=== PATIENT | male | born 1985 | race African-American/Black ===

== ENCOUNTER 2019-03-20 19:03 | Emergency (ER) | payer SELFPAY ==
[2019-03-20] MEDS: Take Home: Acetaminophen/HYDROcodone 325-5 MG, 5 Tab Pack PO ONE (19:35)
[2019-03-20] MEDS: Take Home: Amoxicillin/Clavulanate K 875-125 MG Tab, 2 Tab Pack PO ONE (19:35)
--- NOTE | 2019-03-21 03:52 | EDM.PDOC ---
ED HPI GENERAL MEDICAL PROBLEM - General Chief Complaint: General Stated Complaint: ABCESSED TOOTH Time Seen by Provider: 03/20/19 19:20 Source of Information: Reports: Patient History Limitations: Reports: No Limitations - History of Present Illness INITIAL COMMENTS - FREE TEXT/NARRATIVE: Pt. presents to ER with 1 day history of L lower tooth fracture, pain, and facial swelling. Pt. states that he has a history of dental caries and poor dentition and states that the tooth broke yesterday when he was eating a burger. He states that the pain started gradually over time. Denies any fever or chills. No chest pain or shortness of breath. Pt. has been seen at [facility] in [place] and will be undergoing extraction of approx. 8 teeth in the near future. He is raising money for dentures. Denies any neck swelling. No issues with moving his neck or swallowing. 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, NSAIDS Left Upper Jaw Pain Score (Numeric/FACES): 10 - Related Data Allergies Allergy/AdvReac Type Severity Reaction Status Date / Time No Known Allergies Allergy Verified 03/20/19 21:40 Past Medical History - Past Health History Medical/Surgical History: Denies Medical/Surgical History Social & Family History - Tobacco Use Smoking Status *Q: Never Smoker - Recreational Drug Use Recreational Drug Use: No ED ROS GENERAL - Review of Systems Review Of Systems: See Below Constitutional: Reports: No Symptoms HEENT: Reports: Dental Pain Respiratory: Reports: No Symptoms Cardiovascular: Reports: No Symptoms Endocrine: Reports: No Symptoms GI/Abdominal: Reports: No Symptoms : Reports: No Symptoms Musculoskeletal: Reports: No Symptoms Skin: Reports: No Symptoms Neurological: Reports: No Symptoms Psychiatric: Reports: No Symptoms Hematologic/Lymphatic: Reports: No Symptoms Immunologic: Reports: No Symptoms ED EXAM, GENERAL - Physical Exam Exam: See Below Exam Limited By: No Limitations General Appearance: Alert, WD/WN, No Apparent Distress Throat/Mouth: Other (numerous decayed teeth on L mandibular molars, premolars. No obvious abscess noted. Moderate edema to the soft tissue of the face on the left. No obvious abscess noted. ) Head: Atraumatic, Normocephalic Neck: Normal Inspection, Supple, Non-Tender, Full Range of Motion, Lymphadenopathy (L) Respiratory/Chest: No Respiratory Distress, Lungs Clear, Normal Breath Sounds, No Accessory Muscle Use, Chest Non-Tender Cardiovascular: Normal Peripheral Pulses, Regular Rate, Rhythm, No Edema, No Gallop, No JVD, No Murmur, No Rub Course - Vital Signs Last Recorded V/S: Last Vital Signs Temp 35.9 C 03/20/19 19:15 Pulse 55 L 03/20/19 19:15 Resp 16 03/20/19 19:15 BP 155/95 H 03/20/19 19:15 Pulse Ox 99 03/20/19 19:15 - Orders/Labs/Meds Meds: Medications Discontinued Medications Generic Name Dose Route Start Last Admin Trade Name Freq PRN Reason Stop Dose Admin Hydrocodone Bitart/Acetaminophen 1 packet 03/20/19 19:23 03/20/19 19:35 Take Home: Acetam/Hydrocodon 325-5 Mg, 5 Pack PO 03/20/19 19:24 1 packet ONETIME ONE Administration Amoxicillin/Clavulanate Potassium 1 packet 03/20/19 19:23 03/20/19 19:35 Take Home: Amox/Clavulanate 875-12, 2 Tab Pac PO 03/20/19 19:24 1 packet ONETIME ONE Administration Departure - Departure Time of Disposition: 19:40 Disposition: Home, Self-Care 01 Clinical Impression: Dental infection - Discharge Information Instructions: Acetaminophen; Hydrocodone tablets or capsules, Amoxicillin; Clavulanic Acid tablets, Dental Abscess, [id number], Probiotics Referrals: PCP,None [Primary Care Provider] - Forms: ED Department Discharge Additional Instructions: Augmentin 875mg twice daily for 10 days. Ibuprofen 600mg every 6 hours as needed for pain. Sims 5/325mg 1 every 4-6 hours as needed for severe pain. Return to ER if you have swelling in your neck, trouble swallowing, trouble moving neck, lightheadedness. - Assessment/Plan Plan: Augmentin 875mg twice daily for 10 days. Ibuprofen 600mg every 6 hours as needed for pain. Sims 5/325mg 1 every 4-6 hours as needed for severe pain. Return to ER if you have swelling in your neck, trouble swallowing, trouble moving neck, lightheadedness.
== END 2019-03-20 19:40 | disposition home or self-care (01) ==
LOC: VM.ED 19:03
DX: K04.7 Periapical abscess without sinus (principal)
CPT/HCPCS: 99282; A9270; 99283-GF

== ENCOUNTER 2022-09-15 08:43 | Emergency (ER) | payer SELFPAY ==
[2022-09-15] MEDS: Ketorolac 30 MG/ML SDV IM ONE (09:25)
== END 2022-09-15 09:25 | disposition home or self-care (01) ==
LOC: VM.ED 08:43
DX: K04.7 Periapical abscess without sinus (principal)
CPT/HCPCS: 96372; 99282; 99283; J1885